=== PATIENT | female | born 1965 | race Caucasian/White ===

== ENCOUNTER → 2017-10-08 | Outpatient (CLI) | payer OTHER ==
[~2017-10-08] MED LIST: ACEDIPPM PO; ALBU90OI6 INH; ALBU90OI61 INH; AMOX500 PO; BUPR75 PO; CIPR500 PO; CRUTCH4 EXT; CRUTCH4 USE; CYCL10 PO; DIPATR PO; DIPH50 PO; DIVA250EC PO; DIVA500EC PO; DOCU100 PO; ESTMED1.5T PO; ESTR2 PO; GUAI600ER PO; HYDACE5 PO; HYDACE5325 PO; IBUP600 PO; LEVSOD50 PO; LORA1 PO; LOVA20; MEDR10 PO; METR500 PO; OMEP20ER PO; OXYACE5T; OXYACE5T PO; PARO20 PO; PROC10 PO; PROM25 PO; Percocet 5-3251 EACH PO; Prednisone20 MG PO; QUET200 PO; RXHYDACE PO; RXLORA1 PO; RXOXYACE PO; Zovirax800 MG PO; [UNRECOGNIZED DRUG - REMARK]; [UNRECOGNIZED DRUG - REMARK]
[2017-10-08 17:17] LABS: BASOPHILS ABSOLUTE AUTO 0.03 K/mm3 (0.00-0.23); BASOPHILS PERCENT AUTO 0 % (0-2); EOSINOPHILS ABSOLUTE AUTO 0.56 K/mm3 (0.00-0.68); EOSINOPHILS PERCENT AUTO 7 % (0-6); Hematocrit 40.3 % (33.0-51.0); Hemoglobin 13.1 g/dL (11.5-16.0); IMMATURE GRAN ABSOLUTE AUTO 0.02 K/mm3 (0.00-0.10); IMMATURE GRAN PERCENT AUTO 0 % (0-1); LYMPHOCYTES ABSOLUTE AUTO 3.94 K/mm3 (0.84-5.20); LYMPHOCYTES PERCENT AUTO 48 % (21-46); MONOCYTES ABSOLUTE AUTO 0.56 K/mm3 (0.16-1.47); MONOCYTES PERCENT AUTO 7 % (4-13); Mean Corpuscular HGB 30.3 pg (26.0-34.0); Mean Corpuscular HGB Conc 32.5 g/dL (31.5-36.5); Mean Corpuscular Volume 93 fL (80-100); Mean Platelet Volume 12.1 fL (9.1-12.4); NEUTROPHILS ABSOLUTE AUTO 3.12 K/mm3 (1.96-9.15); NEUTROPHILS PERCENT AUTO 38 % (41-73); Platelet Count 239 K/mm3 (150-400); RDW Coefficient Variation 13.8 % (11.7-14.2); RDW Standard Deviation 47.4 fL (35.1-46.3); Red Blood Cell Count 4.33 M/mm3 (3.80-5.20); White Blood Cell Count 8.23 K/mm3 (4.00-11.30)
[2017-10-08 17:36] LABS: Alanine Aminotransfer (ALT/SGP 20 U/L (12-78); Albumin, Blood 3.4 g/dL (3.4-5.0); Albumin/Globulin Ratio 0.9 (0.8-1.8); Alk Phos 92 U/L (50-136); Anion Gap 6 mmol/L (6-16); Aspartate Aminotrans (AST/SGOT 20 U/L (12-37); Bilirubin, Total 0.2 mg/dL (0.1-1.0); Blood Urea Nitrogen 11 mg/dL (8-24); Bun/Creatinine Ratio 15.5 (12.0-20.0); CO2, Blood 25 mmol/L (21-32); Calcium, Blood 9.7 mg/dL (8.5-10.1); Chloride, Blood 113 mmol/L (98-108); Creatinine, Blood 0.71 mg/dL (0.40-1.00); Globulin, Blood 3.8 g/dL (2.2-4.0); Glomerular Filtration Rate >60 (60-); Glucose, Blood 117 mg/dL (70-99); Potassium, Blood 4.3 mmol/L (3.5-5.5); Sodium, Blood 144 mmol/L (136-145); Total Protein, Blood 7.2 g/dL (6.4-8.2)
== END | disposition home or self-care (01) ==
LOC: LAB SHORT 17:06
PROVIDERS: Nurse Practitioner Family
DX: E03.9 Hypothyroidism, unspecified (principal); E78.5 Hyperlipidemia, unspecified
CPT/HCPCS: 80053; 84443; 85025

== ENCOUNTER 2018-06-09 17:48 | Emergency (ER) | payer OTHER ==
[~2018-06-09] VITALS: Ht 152.4 cm; Wt 77.1 kg
== END 2018-06-09 19:40 | disposition home or self-care (01) ==
LOC: ER 17:48
DX: N64.4 Mastodynia (principal); E03.9 Hypothyroidism, unspecified; F31.9 Bipolar disorder, unspecified; Z87.891 Personal history of nicotine dependence; Z88.8 Allergy status to other drugs, medicaments and biological substances; Z88.6 Allergy status to analgesic agent; Z79.899 Other long term (current) drug therapy
CPT/HCPCS: 99282

== ENCOUNTER 2020-05-11 13:16 | Observation (INO) | payer OTHER ==
[~2020-05-11] VITALS: Ht 152.4 cm; Wt 71.8 kg
[2020-05-11] MEDS ORDERED: Isosorbide Mono30 MG (13:28)
[2020-05-11] MEDS ORDERED: TRAM50 PO ×2 (13:28→17:30)
[2020-05-11 13:48] LABS: BASOPHILS ABSOLUTE AUTO 0.06 K/mm3 (0.00-0.23); BASOPHILS PERCENT AUTO 1 % (0-2); EOSINOPHILS ABSOLUTE AUTO 0.54 K/mm3 (0.00-0.68); EOSINOPHILS PERCENT AUTO 5 % (0-6); Hematocrit 41.6 % (33.0-51.0); Hemoglobin 12.9 g/dL (11.5-16.0); IMMATURE GRAN ABSOLUTE AUTO 0.03 K/mm3 (0.00-0.10); IMMATURE GRAN PERCENT AUTO 0 % (0-1); LYMPHOCYTES ABSOLUTE AUTO 3.99 K/mm3 (0.84-5.20); LYMPHOCYTES PERCENT AUTO 40 % (21-46); MONOCYTES PERCENT AUTO 6 % (4-13); Mean Corpuscular HGB 27.4 pg (26.0-34.0); Mean Corpuscular Volume 89 fL (80-100); Mean Platelet Volume 12.3 fL (9.1-12.4); NEUTROPHILS ABSOLUTE AUTO 4.87 K/mm3 (1.96-9.15); NEUTROPHILS PERCENT AUTO 48 % (41-73); Platelet Count 236 K/mm3 (150-400); RDW Coefficient Variation 14.5 % (11.7-14.2); RDW Standard Deviation 46.9 fL (35.1-46.3); White Blood Cell Count 10.09 K/mm3 (4.00-11.30)
[2020-05-11 14:39] LABS: Alanine Aminotransfer (ALT/SGP 13 U/L (12-78); Albumin, Blood 3.4 g/dL (3.4-5.0); Albumin/Globulin Ratio 0.8 (0.8-1.8); Alk Phos 80 U/L (50-136); Anion Gap 7 mmol/L (6-16); Aspartate Aminotrans (AST/SGOT 14 U/L (12-37); Bilirubin, Total 0.2 mg/dL (0.1-1.0); Blood Urea Nitrogen 15 mg/dL (8-24); Bun/Creatinine Ratio 20.8 (12.0-20.0); CO2, Blood 23 mmol/L (21-32); Calcium, Blood 11.4 mg/dL (8.5-10.1); Chloride, Blood 109 mmol/L (98-108); Creatinine, Blood 0.72 mg/dL (0.40-1.00); Globulin, Blood 4.1 g/dL (2.2-4.0); Glomerular Filtration Rate >60 (60-); Glucose, Blood 110 mg/dL (70-99); Potassium, Blood 4.2 mmol/L (3.5-5.5); Sodium, Blood 139 mmol/L (136-145); Total Protein, Blood 7.5 g/dL (6.4-8.2); Troponin I 0.023 ng/mL (0.000-0.040)
[2020-05-11] MEDS ORDERED: DOK100 M2 PO (15:48)
[2020-05-11] MEDS ORDERED: ESTRADIOL1 M1 PO (15:48)
[2020-05-11] MEDS ORDERED: EUTHYROX125 MC1 PO (15:51)
[2020-05-11] MEDS ORDERED: Divalproex Sod500 MG PO (15:51)
[2020-05-11] MEDS ORDERED: DIVA500ER PO (15:52)
[2020-05-11 16:42] LABS: Free Thyroxine 1.21 ng/dL (0.70-1.60); Thyroid Stimulating Hormone 1.01 uIU/mL (0.360-4.800)
--- NOTE | 2020-05-11 18:02 | NUR ---
PT ARRIVED TO PCU 6 VIA GURNEY FROM ED REPORT FROM JAY BARROSO, PT IS A/OX3, A BIT SLOW, INDEPENDENT, STEADY ON HER FEET, DENIES PAIN AT THIS TIME, LUNGS ARE CLEAR T/O, RESP EVEN AND UNLABORED, NO COUGH NOTED, HRR, TELE IN PLACE RUNNING SB PER MONITOR, IN THE 40'S TO 50'S, NO EDEMA NOTED, PPP+2, CAP REFILL <3SEC, VS STABLE, AFEBRILE, IV SITE TO LEFT HAND, S.L. CLEAR AND PATENT, BTX4, ABD FLAT SOFT NONTENDER, VOIDS WITHOUT DIFF, SKIN C/W/D, FERNANDO, SEBAS, CALL LIGHT IN REACH. ORIENTED TO ROOM LAYOUT, CALL SYSTEM, CALL LIGHT IN REACH.
--- NOTE | 2020-05-11 20:45 | NUR ---
UPDATE PATIENT REPORTED HAVING CHEST PAIN AND WAS MEDICATED FOR PAIN PER EMAR WITH IV MORPHINE. PATIENT REPORTED RELIEF AFTER IV PAIN MEDICATION WAS GIVEN FOR THE SECOND TIME. PATIENT DENIED THE NEED FOR ANY FURTHER MEDICATION, STATED PAIN WAS TOLERABLE AT THIS TIME.
--- NOTE | 2020-05-12 00:10 | NUR ---
CRITICAL TROPONIN DR VEGA NOTIFIED OF PATIENT'S CRITICALLY JHONATAN TROPONING. DR VEGA ENTERED HIS OWN ORDERS. EKG OBTAINED AND HEPARING GTT INITATED. PATIENT DENIES ANY CHEST PAIN AT THIS TIME. VITAL SIGNS CHARTED.
[2020-05-12 00:40] LABS: International Normalized Ratio 0.95; Prothrombin Time Results 10.2 Sec (9.7-11.5)
--- NOTE | 2020-05-12 06:24 | NUR ---
SHIFT SUMMARY PATIENT PLEASENT AND COOPERATIVE THROUGHOUT THE NIGHT. PATIENT MEDICATED FOR CHEST PAIN PER EMAR. PATIENT APPEARED TO SLEEP WELL THROUGHOUT MOST OF THE NIGHT. VITAL SIGNS CHARTED. HEPARIN GTT RUNNING PER ORDERS. PATIENT INDEPENDENT IN ROOM AND MOVES SELF WELL IN THE BED. WILL CONTINUE TO MONITOR PATIENT AND REPORT TO ONCOMING RN.
[2020-05-12 07:11] LABS: BASOPHILS ABSOLUTE AUTO 0.05 K/mm3 (0.00-0.23); BASOPHILS PERCENT AUTO 1 % (0-2); EOSINOPHILS ABSOLUTE AUTO 0.39 K/mm3 (0.00-0.68); EOSINOPHILS PERCENT AUTO 5 % (0-6); Hematocrit 41.1 % (33.0-51.0); Hemoglobin 12.8 g/dL (11.5-16.0); IMMATURE GRAN ABSOLUTE AUTO 0.03 K/mm3 (0.00-0.10); IMMATURE GRAN PERCENT AUTO 0 % (0-1); LYMPHOCYTES ABSOLUTE AUTO 3.93 K/mm3 (0.84-5.20); LYMPHOCYTES PERCENT AUTO 50 % (21-46); MONOCYTES ABSOLUTE AUTO 0.68 K/mm3 (0.16-1.47); MONOCYTES PERCENT AUTO 9 % (4-13); Mean Corpuscular HGB 27.7 pg (26.0-34.0); Mean Corpuscular HGB Conc 31.1 g/dL (31.5-36.5); Mean Corpuscular Volume 89 fL (80-100); NEUTROPHILS ABSOLUTE AUTO 2.82 K/mm3 (1.96-9.15); NEUTROPHILS PERCENT AUTO 36 % (41-73); Platelet Count 184 K/mm3 (150-400); RDW Coefficient Variation 14.7 % (11.7-14.2); RDW Standard Deviation 47.8 fL (35.1-46.3); Red Blood Cell Count 4.62 M/mm3 (3.80-5.20)
[2020-05-12 07:43] LABS: Alanine Aminotransfer (ALT/SGP 70 U/L (12-78); Albumin, Blood 3.2 g/dL (3.4-5.0); Albumin/Globulin Ratio 0.8 (0.8-1.8); Alk Phos 132 U/L (50-136); Anion Gap 6 mmol/L (6-16); Aspartate Aminotrans (AST/SGOT 167 U/L (12-37); Bilirubin, Total 0.3 mg/dL (0.1-1.0); Blood Urea Nitrogen 13 mg/dL (8-24); Bun/Creatinine Ratio 15.1 (12.0-20.0); CHOL/HDL RATIO 3.9; CO2, Blood 27 mmol/L (21-32); Calcium, Blood 10.2 mg/dL (8.5-10.1); Chloride, Blood 106 mmol/L (98-108); Cholesterol 177 mg/dL (50-200); Creatinine, Blood 0.86 mg/dL (0.40-1.00); Globulin, Blood 4.1 g/dL (2.2-4.0); Glomerular Filtration Rate >60 (60-); Glucose, Blood 97 mg/dL (70-99); HDL Cholesterol 45 mg/dL (>39); LDL/HDL RATIO Unable to Calculate; Low Density Lipoprotein Chol Unable to Calculate mg/dL (0-110); Sodium, Blood 139 mmol/L (136-145); Total Protein, Blood 7.3 g/dL (6.4-8.2); Triglycerides 414 mg/dL (30-160); Very Low Density Lipoprot Chol Unable to Calculate mg/dL (6-32)
[2020-05-12] MEDS ORDERED: ATOR20 PO (10:48)
[2020-05-12] MEDS ORDERED: CLOP75 PO (10:50)
--- NOTE | 2020-05-12 12:28 | NUR ---
ASSUMED CARE OF PT AT 0700. REPORT FROM PAVAN BARROSO. PT RESTING IN BED. WAKES c VERBAL STIMULI. ANSWERS QUESTIONS APPROPRIATELY, FOLLOWS COMMANDS. REPORTS EPISODES OF CHEST PAIN LAST NOC, DENIES PAIN OR SOB AT THIS TIME. LUNGS CLEAR. PT P/W/D. SPEAKING IN FULL SENTANCES. INDEPENDENT IN ROOM. HEPARIN INFUSING AT 13 UNITS/KG/HR, VERIFIED c PAVAN BARROSO. VSS. PT TO SIEBEL ARCHITECT AT 0734. UPON RETURN TO ROOM, RIGHT RADIAL ACCESS c TR BAND IN PLACE. DEFLATED, NO SWELLING, BRUISING OR TENDERNESS NOTED. REMOVED AND PLACED OPSITE. ARM BOARD IN PLACE. D/C ORDERS OBTAINED. REVIEWED INSTRUCTIONS REGARDING ACCESS SITE CARE, NEW MEDS AND F/U APPT. PT VERBALIZED UNDERSTANDING OF D/C INSTRUCTIONS. IV REMOVED, PRESSURE DRESSING APPLIED. OTD NEEL.
== END 2020-05-12 12:35 | disposition home or self-care (01) ==
LOC: ER 13:16 → PCU 13:17
PROVIDERS: Emergency Medicine; Hospitalist; ADMIT Internal Medicine
PROC: 4A023N7 Measurement of Cardiac Sampling and Pressure, Left Heart, Percutaneous Approach (ICD-10-PCS; principal; 2020-05-11)
PROC: B201YZZ Plain Radiography of Multiple Coronary Arteries using Other Contrast (ICD-10-PCS; principal; 2020-05-11)
DX: I21.4 Non-ST elevation (NSTEMI) myocardial infarction (principal); E78.5 Hyperlipidemia, unspecified; F31.9 Bipolar disorder, unspecified; E03.9 Hypothyroidism, unspecified; Z88.6 Allergy status to analgesic agent; Z88.7 Allergy status to serum and vaccine; Z87.891 Personal history of nicotine dependence; Z79.899 Other long term (current) drug therapy; F41.9 Anxiety disorder, unspecified
CPT/HCPCS: 36415; 71046; 76937; 80053; 80061; 83690; 83735; 84439; 84443; 84484; 85025; 85347; 85610; 85730; 93005; 93010; 93306; 93454; 96374-59; 96375; 96376; 99152; 99153; 99285-25; A9270-GY; C1769; C1894; G0378; J1644; J2250; J2270; J3010; J7030; Q9967

== ENCOUNTER 2021-04-15 08:13 | Day surgery (SDC) | payer OTHER ==
[~2021-04-15] VITALS: Ht 152.4 cm; Wt 68.9 kg
[~2021-04-15 08:13] MED LIST changes: +ABILIFY MYCITE5 M2 PO; +ALBU90OI INH; +ATOR20 PO; +CLOP75 PO; +DIVA500ER PO; +DOK100 M2 PO; +Divalproex Sod500 MG PO; +ESTRADIOL1 M1 PO; +ESTRADIOL1 MG PO; +EUTHYROX125 MC1 PO; +GABA300 PO; +Isosorbide Mono30 MG; +TRAM50 PO; +TRAZ50 PO
--- NOTE | 2021-04-15 10:17 | NUR ---
04/15/21 1017 Rachel Haywood PT NOTED TO HAVE SMALL ABRASION ON CHIN AND MID UPPER BACK. MD ESPINOZA
--- NOTE | 2021-04-15 12:22 | NUR ---
04/15/21 1222 RODERICK MEEK PAIN DOWN TO A 3/10 AT DISCHARGE
== END 2021-04-15 12:40 | disposition home or self-care (01) ==
LOC: ORSCSDS 08:13
PROVIDERS: Orthopaedic Surgery
PROC: 0LQ14ZZ Repair Right Shoulder Tendon, Percutaneous Endoscopic Approach (ICD-10-PCS; principal; 2021-04-15 10:00)
PROC: 0RNJ4ZZ Release Right Shoulder Joint, Percutaneous Endoscopic Approach (ICD-10-PCS; principal; 2021-04-15 10:00)
DX: M75.111 Incomplete rotator cuff tear or rupture of right shoulder, not specified as traumatic (principal); M75.41 Impingement syndrome of right shoulder; S43.431A Superior glenoid labrum lesion of right shoulder, initial encounter; I25.10 Atherosclerotic heart disease of native coronary artery without angina pectoris; J44.9 Chronic obstructive pulmonary disease, unspecified; Z87.891 Personal history of nicotine dependence; I25.2 Old myocardial infarction; Z79.02 Long term (current) use of antithrombotics/antiplatelets; Z79.899 Other long term (current) drug therapy
CPT/HCPCS: A9270; C1713; J0171; J0690; J0735; J1100; J1885; J2250; J2405; J2704; J2710; J2795; J3010

== ENCOUNTER → 2021-04-26 | Outpatient (CLI) | payer OTHER | END | disposition home or self-care (01) | LOC: LAB SHORT 11:48 → LAB 11:48 | DX: E83.52 Hypercalcemia (principal) | CPT/HCPCS: 36415; 82306; 83970 ==

== ENCOUNTER → 2021-06-29 | Outpatient (CLI) | payer OTHER ==
[2021-06-29 14:18] LABS: Calcium, Urine 10.2 mg/dL (< 17.5)
== END | disposition home or self-care (01) ==
LOC: LAB 12:32 → LAB SHORT 12:32 → OLS 12:32
PROVIDERS: Otolaryngology
DX: E21.3 Hyperparathyroidism, unspecified (principal)
CPT/HCPCS: 81050; 82340

== ENCOUNTER 2023-03-17 10:52 | Day surgery (SDC) | payer OTHER ==
[~2023-03-17] VITALS: Ht 149.9 cm; Wt 69.7 kg
[2023-03-17] MEDS ORDERED: NAPR500EC (11:15)
[2023-03-17] MEDS ORDERED: BUDE.25 (11:16)
[2023-03-17 13:35] VITALS: BP 113/66
== END 2023-03-17 13:38 | disposition home or self-care (01) ==
LOC: ORSCSDS 10:52
PROVIDERS: Internal Medicine Gastroenterology
PROC: 0DB68ZX Excision of Stomach, Via Natural or Artificial Opening Endoscopic, Diagnostic (ICD-10-PCS; principal; 2023-03-17 10:15)
PROC: 0DJD8ZZ Inspection of Lower Intestinal Tract, Via Natural or Artificial Opening Endoscopic (ICD-10-PCS; principal; 2023-03-17 10:15)
PROC: 0DB98ZX Excision of Duodenum, Via Natural or Artificial Opening Endoscopic, Diagnostic (ICD-10-PCS; principal; 2023-03-17 10:15)
DX: R13.10 Dysphagia, unspecified (principal); Q39.6 Congenital diverticulum of esophagus; K44.9 Diaphragmatic hernia without obstruction or gangrene; K29.70 Gastritis, unspecified, without bleeding; K31.7 Polyp of stomach and duodenum; K21.9 Gastro-esophageal reflux disease without esophagitis; K57.30 Diverticulosis of large intestine without perforation or abscess without bleeding; K64.1 Second degree hemorrhoids; K62.5 Hemorrhage of anus and rectum; E03.9 Hypothyroidism, unspecified; F25.9 Schizoaffective disorder, unspecified; F43.10 Post-traumatic stress disorder, unspecified; I10 Essential (primary) hypertension; I25.2 Old myocardial infarction; Z79.899 Other long term (current) drug therapy; F17.200 Nicotine dependence, unspecified, uncomplicated
CPT/HCPCS: 88305; 88341; 88342; J2704; J7120

== ENCOUNTER 2023-05-26 06:43 | Day surgery (SDC) | payer OTHER ==
[~2023-05-26] VITALS: Ht 149.9 cm; Wt 68.0 kg
[~2023-05-26 06:43] MED LIST changes: +BUDE.25; +NAPR500EC
[2023-05-26] MEDS ORDERED: PANT20 (07:30)
[2023-05-26] MEDS ORDERED: NAPR500 (07:30)
[2023-05-26 09:35] VITALS: BP 93/63
== END 2023-05-26 09:40 | disposition home or self-care (01) ==
LOC: ORSCSDS 06:43
PROVIDERS: Internal Medicine Gastroenterology
PROC: 0D758ZZ Dilation of Esophagus, Via Natural or Artificial Opening Endoscopic (ICD-10-PCS; principal; 2023-05-26 08:30)
DX: R13.10 Dysphagia, unspecified (principal); K44.9 Diaphragmatic hernia without obstruction or gangrene; Q39.6 Congenital diverticulum of esophagus; F43.10 Post-traumatic stress disorder, unspecified; Z80.0 Family history of malignant neoplasm of digestive organs; F25.9 Schizoaffective disorder, unspecified; K21.9 Gastro-esophageal reflux disease without esophagitis; I10 Essential (primary) hypertension; I21.9 Acute myocardial infarction, unspecified; Z79.02 Long term (current) use of antithrombotics/antiplatelets; F17.210 Nicotine dependence, cigarettes, uncomplicated; Z79.899 Other long term (current) drug therapy
CPT/HCPCS: J2704; J7120

== ENCOUNTER → 2023-06-04 | Outpatient (CLI) | payer OTHER ==
[~2023-06-04] MED LIST changes: +NAPR500; +PANT20
[2023-06-05 07:10] LABS: HIV AB/P24 AG SCREEN Non Reactive (Non Reactive)
[2023-06-05 08:10] LABS: HBSAG SCREEN Negative (Negative); HCV AB Non Reactive (Non Reactive); HEP B CORE AB, TOT Negative (Negative)
[2023-06-06 03:11] LABS: CHLAMYDIA TRACHOMATIS, NAA Negative (Negative)
== END | disposition home or self-care (01) ==
LOC: LAB 10:40 → LAB SHORT 10:40
PROVIDERS: Family Medicine
DX: Z11.3 Encounter for screening for infections with a predominantly sexual mode of transmission (principal)
CPT/HCPCS: 86592; 86704; 86708; 86803; 87340; 87389; 87491; 87591

== ENCOUNTER → 2024-12-20 | Outpatient (CLI) | payer OTHER ==
[~2024-12-20] MED LIST changes: +ONDA4ODT MM
[2024-12-20 19:17] LABS: BASOPHILS ABSOLUTE AUTO 0.06 K/mm3 (0.00-0.23); BASOPHILS PERCENT AUTO 1 % (0-2); EOSINOPHILS ABSOLUTE AUTO 0.27 K/mm3 (0.00-0.68); EOSINOPHILS PERCENT AUTO 4 % (0-6); Hematocrit 37.2 % (33.0-51.0); Hemoglobin 12.2 g/dL (11.5-16.0); IMMATURE GRAN ABSOLUTE AUTO 0.02 K/mm3 (0.00-0.10); IMMATURE GRAN PERCENT AUTO 0 % (0-1); LYMPHOCYTES ABSOLUTE AUTO 3.58 K/mm3 (0.84-5.20); LYMPHOCYTES PERCENT AUTO 53 % (21-46); MONOCYTES ABSOLUTE AUTO 0.43 K/mm3 (0.16-1.47); MONOCYTES PERCENT AUTO 6 % (4-13); Mean Corpuscular HGB 29.7 pg (26.0-34.0); Mean Corpuscular HGB Conc 32.8 g/dL (31.5-36.5); Mean Corpuscular Volume 91 fL (80-100); Mean Platelet Volume 11.9 fL (9.1-12.4); NEUTROPHILS ABSOLUTE AUTO 2.35 K/mm3 (1.96-9.15); NEUTROPHILS PERCENT AUTO 35 % (41-73); Platelet Count 253 K/mm3 (150-400); RDW Coefficient Variation 13.9 % (11.7-14.2); RDW Standard Deviation 46.4 fL (35.1-46.3); Red Blood Cell Count 4.11 M/mm3 (3.80-5.20); White Blood Cell Count 6.71 K/mm3 (4.00-11.30)
[2024-12-20 19:37] LABS: Percent Saturation 16.8 % (15.0-50.0)
== END | disposition home or self-care (01) ==
LOC: LAB SHORT 17:56 → LAB 17:56
PROVIDERS: Family Medicine
DX: D50.9 Iron deficiency anemia, unspecified (principal)
CPT/HCPCS: 82728; 83540; 83550; 85025

== ENCOUNTER 2025-09-18 08:44 | Day surgery (SDC) | payer OTHER ==
[~2025-09-18] VITALS: Ht 139.7 cm; Wt 63.4 kg
[~2025-09-18 08:44] MED LIST changes: +BREYNA 80-4.510.3 GM; +Lidocaine 1%-Epineph 1:100000 20 ML MDV ONE; +Lidocaine 1%-Epineph 1:200000 30 ML SDV ONE; +MUPIROCIN2210; +TRAZ100
[2025-09-18] MEDS ORDERED: Lidocaine 2%-Epineph 1:200000 20 ML SDV ONE (10:56)
[2025-09-18] MEDS ORDERED: Ipratropium/Albuterol SulF 2.5-0.5MG/3 ML Amp ONE (11:11)
[2025-09-18] MEDS ORDERED: FentaNYL Citrate 50 MCG/ML 2 ML Injection ONE (11:36)
[2025-09-18] MEDS ORDERED: Rocuronium Bromide 10 MG/ML 5ML Injection IV ONE ×2 (11:36→11:54)
[2025-09-18] MEDS ORDERED: ePHEDrine Sulfate 50 MG/ML 1ML Injection ONE (11:53)
[2025-09-18] MEDS ORDERED: Dexamethasone Sod Phos 10 MG/ML 1ML VIAL ONE (12:14)
[2025-09-18] MEDS ORDERED: Sugammadex Sodium 200 MG/2ML SDV (100 MG/ML) ONE (12:27)
[2025-09-18] MEDS ORDERED: Ondansetron HCl 2 MG / ML 2ML Vial ONE (12:27)
--- NOTE | 2025-09-18 12:43 | NUR ---
09/18/[address] AT 1243- DR. SEN SPOKE TO
[2025-09-18 13:46] VITALS: BP 139/75
== END 2025-09-18 14:15 | disposition home or self-care (01) ==
LOC: ORSCSDS 08:44
PROVIDERS: Otolaryngology
PROC: 0GTP0ZZ Resection of Left Inferior Parathyroid Gland, Open Approach (ICD-10-PCS; principal; 2025-09-18 10:30)
DX: E21.0 Primary hyperparathyroidism (principal); D35.1 Benign neoplasm of parathyroid gland; E03.9 Hypothyroidism, unspecified; E78.5 Hyperlipidemia, unspecified; I25.10 Atherosclerotic heart disease of native coronary artery without angina pectoris; F17.210 Nicotine dependence, cigarettes, uncomplicated; J44.9 Chronic obstructive pulmonary disease, unspecified; K21.9 Gastro-esophageal reflux disease without esophagitis; I25.2 Old myocardial infarction; G40.909 Epilepsy, unspecified, not intractable, without status epilepticus; Z79.02 Long term (current) use of antithrombotics/antiplatelets; Z79.899 Other long term (current) drug therapy; F25.9 Schizoaffective disorder, unspecified; J45.909 Unspecified asthma, uncomplicated; I10 Essential (primary) hypertension; E66.9 Obesity, unspecified; Z68.30 Body mass index [BMI] 30.0-30.9, adult
CPT/HCPCS: 83970; 88305; 88331; A9270; J1100; J2405; J2704; J3010; J7120